=== PATIENT | female | born 1960 | race Two or more races ===

== ENCOUNTER 2019-07-31 05:20 | Inpatient (IN) | payer OTHER ==
[2019-07-31] VITALS (8 sets, daily range): BP systolic 126–152; BP diastolic 66–78
[~2019-07-31] VITALS: Ht 167.6 cm; Wt 71.7 kg
[2019-07-31] MEDS ORDERED: Phenylephrine 10mg/ml Vial ONE (06:23)
[2019-07-31] MEDS ORDERED: Lidocaine 1% MPF 10mg/ml 5ml ONE (06:23)
[2019-07-31] MEDS ORDERED: PROBIOTIC1 EAC2 PO (06:26)
[2019-07-31] MEDS ORDERED: MULTIVITAMINS1 EAC2 ORAL (06:26)
[2019-07-31] MEDS ORDERED: VITAMIN B12-FO1 EAC1 PO (06:26)
[2019-07-31] MEDS ORDERED: fentaNYL 100 mcg/2 mL IV ONE (06:26)
[2019-07-31] MEDS ORDERED: TURMERIC CURCUMIN PO (06:26)
[2019-07-31] MEDS ORDERED: Midazolam 2mg/2ml Inj ONE (06:27)
[2019-07-31] MEDS ORDERED: MUPIROCIN22 GM TOPIC (06:28)
[2019-07-31] MEDS ORDERED: Dexamethasone 4mg/ml vial ONE (06:31)
[2019-07-31] MEDS ORDERED: Vancomycin 1gm vial IVPB ONE (06:38)
[2019-07-31] MEDS ORDERED: Thrombin 5000 units TOPIC ONE (06:39)
[2019-07-31] MEDS ORDERED: Gelfoam Size TOPIC ONE (06:39)
[2019-07-31] MEDS ORDERED: Bacitracin 50000 Units Vial ONE (06:39)
[2019-07-31] MEDS ORDERED: Succinylcholine 20mg/ml 10ml vial ONE (06:40)
[2019-07-31] MEDS ORDERED: Rocuronium Bromide 50mg/5ml Inj IV ONE (06:40)
[2019-07-31] MEDS ORDERED: NS Irrig 1000ml ONE (07:00)
[2019-07-31] MEDS ORDERED: LR 1000ml ONE (07:00)
[2019-07-31] MEDS ORDERED: Sterile Water Irrig 1000ml IRRIG ONE (07:00)
[2019-07-31] MEDS ORDERED: ceFAZolin sod 2 GM in NS 55 ML IVPB ONE (07:00)
[2019-07-31] MEDS ORDERED: ceFAZolin sod 1 GM in NS 55 ML IVPB ONE (07:00)
[2019-07-31] MEDS ORDERED: Propofol 1,000mg/ 100ml btl IV ONE (07:00)
--- NOTE | 2019-07-31 07:02 | Anethesia Preoperative Eval ---
Anesthesia Pre-op PMH/ROS General Date of Evaluation: Jul 31, 2019 Time of Evaluation: 06:59 Anesthesiologist: James ASA Score: ASA 2 Mallampati Score Class I : Soft palate, uvula, fauces, pillars visible Class II: Soft palate, uvula, fauces visible Class III: Soft palate, base of uvula visible Class IV: Only hard plate visible Mallampati Classification: Class II Surgeon: Lubna Diagnosis: Cervical radiculopathuy Surgical Procedure: ACDF Anesthesia History: none Family History: no anesthesia problems Allergies: Coded Allergies: No Known Allergies (Unverified , 07/31/19) Patient NPO?: Yes NPO Date: Jul 30, 2019 NPO Time: 2300 Past Medical History Cardiovascular: Denies: HTN, CAD, PA, valve dz, arrhythmia, other Pulmonary: Denies: asthma, COPD, MOUNIKA, other Gastrointestinal/Genitourinary: Reports: GERD; Denies: CRI, ESRD, other Neurologic/Psychiatric: Reports: other - chronic pain; Denies: dementia, CVA, depression/anxiety, TIA Endocrine: Denies: DM, hypothyroidism, steroids, other HEENT: Denies: cataract (L), cataract (R), glaucoma, [place] (L), [place] (R), other Hematology/Immune: Denies: anemia, DVT, bleeding disorder, other Musculoskeletal/Integumentary: Denies: OA, RA, DJD, DDD, edema, other PMH Narrative: as above PSxH Narrative: see H&P Anesthesia Pre-op Phys. Exam Physician Exam Last Vital Signs Date Time Temp Pulse Resp B/P (MAP) Pulse Ox O2 Delivery O2 Flow Rate FiO2 07/31/19 06:02 Room Air 07/31/19 05:51 97.4 74 18 137/78 (97) 98 Constitutional: NAD Neurologic: CN 2-12 intact Cardiovascular: RRR, no M/R/G Respiratory: CTA Gastrointestinal: S/NT/ND Airway Exam Mallampati Score: Class II MO: full Neck: flexible ROM: full Teeth: intact Dentures: no upper, no lower Anesthesia Pre-op A/P Labs see chart Studies Pre-op Studies: EKG - NSR, CXR - WNL Risk Assessment & Plan Assessment: ASA 2 Plan: GA with ETT, PONV prevention, neuromonitoring Status Change Before Surgery: No Pre-Antibiotics Drug: Ancef 1gr. Given Within 1 Hr of Incision: Yes Time Given: 07:22 Isidro Ramirez MD Jul 31, 2019 07:02
[2019-07-31] MEDS ORDERED: Acetaminophen (Non formulary) 100 ML IV ONE (07:15)
--- NOTE | 2019-07-31 07:20 | Pre-Procedure Note/Attestation ---
Pre-Procedure Note/Attestation Complete Prior to Procedure Planned Procedure: not applicable Procedure Narrative: Anterior cervical discectomy and fusion of C56 Indications for Procedure Pre-Operative Diagnosis: C56 herniation Attestation I attest that I discussed the nature of the procedure; its benefits; risks and complications; and alternatives (and the risks and benefits of such alternatives ), prior to the procedure, with the patient (or the patient's legal chain sales representative). I attest that, if there was a reasonable possibility of needing a blood transfusion, the patient (or the patient's legal chain sales representative) was given the [facility] standardized written summary, pursuant to the Demario Tiago Blood Safety Act ([place] Health and Safety Code # 1645, as amended). I attest that I re-evaluated the patient just prior to the surgery and that there has been no change in the patient's H&P, except as documented below: Vance Calvo MD Jul 31, 2019 07:20
--- NOTE | 2019-07-31 07:23 | Brief Operative Note ---
Immediate Post Operative Note Operative Note Chief Complaint: neck pain and radiculopathy left Pre-op Diagnosis: C56 herniation Procedure: Anterior cervical discectomy and fusion of C56 Post-op Diagnosis: same as pre-op Findings: consistent w/pre-op dx studies Surgeon: Lubna Geochemical Laboratory Technician: Caroline Anesthesiologist: delia Anesthesia: general Specimen: none Complications: none Condition: stable Fluids: iv Estimated Blood Loss: minimal Drains: none Implant(s) used?: Yes - sz 6 nuvasive interlock c [id number] Vance Calvo MD Jul 31, 2019 07:23
[2019-07-31] MEDS ORDERED: Glycopyrrolate 0.2mg/ml 1ml Vial ONE (07:56)
[2019-07-31] MEDS ORDERED: Ketorolac 30mg Inj ONE (07:56)
[2019-07-31] MEDS ORDERED: Morphine Sulfate 10mg/ml Inj ONE (07:56)
[2019-07-31] MEDS ORDERED: Neostigmine 1mg/ml 10ml Inj ONE (07:56)
[2019-07-31] MEDS ORDERED: LR 1000ml 1,000 ML IVLG SCH (08:03)
[2019-07-31] MEDS ORDERED: Ketorolac 30mg Inj IV PRN (08:15)
[2019-07-31] MEDS ORDERED: DiphenhydrAMINE 50mg/ml Inj IVP PRN (08:15)
[2019-07-31] MEDS ORDERED: Metoclopramide 10mg/2ml Inj IVP PRN ×2 (08:15→11:00)
--- NOTE | 2019-07-31 08:57 | Immediate Post-Op Evaluation ---
Immediate Post-Op Evalulation Immediate Post-Op Evalulation Procedure: ACDF C5-C6 Date of Evaluation: Jul 31, 2019 Time of Evaluation: 08:56 IV Fluids: 800 Blood Products: none Estimated Blood Loss: 50 Urinary Output: 250 Blood Pressure Systolic: 142 Blood Pressure Diastolic: 76 Pulse Rate: 78 Respiratory Rate: 20 O2 Sat by Pulse Oximetry: 99 Temperature (Fahrenheit): 97.6 Pain Score (1-10): 2 Nausea: No Vomiting: No Complications none Patient Status: reacts, patent, extubated, none Hydration Status: adequate Isidro Ramirez MD Jul 31, 2019 08:56
[2019-07-31] MEDS: Hydromorphone 0.5mg/0.5ml inj IVP PRN ×2 (09:22→09:33)
--- NOTE | 2019-07-31 10:34 | NUR ---
NURSE NOTES: Received report. pt a/a/o x4 laying in bed with no signs of distress or other issues at this time. surgical site dry and intact with Dermabond. IV on the right hand gauge#18 running LR@100ml/hr, RN will review fluids and will change as indicated by MD. call light within reach, bed in lowest position. side rales up x2. pts friend at bedside.
[2019-07-31] MEDS ORDERED: HYDROcodone/Acetamin 7.5/325 tab ORAL PRN ×2 (11:00)
[2019-07-31] MEDS ORDERED: HYDROmorphone 1mg/ml Carpuject IVP PRN (11:00)
[2019-07-31] MEDS ORDERED: Naloxone 0.4mg/ml Inj IVP PRN (11:00)
[2019-07-31] MEDS ORDERED: HYDROcodone/Acetamin 5/325 tab ORAL PRN (11:00)
[2019-07-31] MEDS ORDERED: Morphine Sulfate 2mg/ml Inj(IV/IM USE ONLY) IV PRN (11:00)
[2019-07-31] MEDS ORDERED: Milk of Magnesia 30ml Ud ORAL PRN (11:00)
[2019-07-31] MEDS ORDERED: Morphine Sulfate 4mg/ml Inj (IV USE ONLY) IV PRN ×2 (11:00)
[2019-07-31] MEDS ORDERED: Chloraseptic Spray 20mL Bottle ORAL PRN (11:00)
[2019-07-31] MEDS: NS w/KCl 20mEq 1000ml 1,000 ML IV SCH ×3 (12:02→23:21)
[2019-07-31] MEDS: Dexamethasone 4mg/ml vial IVP SCH ×3 (12:02→23:29)
[2019-07-31] MEDS: ceFAZolin sod 1 GM in D5W 55 ML IV SCH ×2 (15:20→23:22)
--- NOTE | 2019-07-31 16:30 | Diagnostic Imaging Report ---
INDICATION: Pain, intraoperative TECHNIQUE: Intraoperative imaging Fluoroscopy time: 6. seconds Total dose: [id number] Total number of images: 3 COMPARISON: None FINDINGS: Intraoperative images document anterior fusion hardware at C5-6. IMPRESSION: Intraoperative imaging, as described
--- NOTE | 2019-07-31 16:30 | Diagnostic Imaging Report ---
INDICATION: Pain, intraoperative TECHNIQUE: Intraoperative imaging Fluoroscopy time: 6. seconds Total dose: [id number] Total number of images: 3 COMPARISON: None FINDINGS: Intraoperative images document anterior fusion hardware at C5-6. IMPRESSION: Intraoperative imaging, as described
--- NOTE | 2019-07-31 16:39 | NUR ---
CASE MANAGEMENT: INITIAL REVIEW 58 YO F PRESENTED TO HOSPITAL FOR SURGERY SI: HERNIATED NUCLEUS PULPOSUS T 97.4 HR 74 RR 18 B/P 137/78 SATS 98% ON RA LABS: NONE TODAY IS: OR MEDS PATIENT ADMITTED TO MED/SURG 07/31/2019 @ 0723 DCP: HOME PLAN OF CARE: Pre-op Diagnosis: C56 herniation Procedure: Anterior cervical discectomy and fusion of C56 Addendum: 07/31/19 at 1656 by Olena Barajas CM INTERQUAL MET
[2019-07-31] MEDS: Docusate 100mg cap ORAL SCH (17:40)
--- NOTE | 2019-07-31 19:27 | NUR ---
HAND-OFF: Report given to Divina RACHEL, pt in stable condition. - During my shift pt was able to ambulate around the room with steady gait and staff supervision. - pt was able to void after Palma cath was removed from PACU.
--- NOTE | 2019-07-31 19:34 | NUR ---
NURSE NOTES: Received patient in bed, awake, alert, oriented x4, IV site is dry, clean and intact, no acute distress noted or reported,dressing site is clean dry and intact. Call light is within reach, bed is lowered, locked and alarm is on. Will continue to monitor for comfort and safety.
[2019-08-01] MEDS: Dexamethasone 4mg/ml vial IVP SCH (05:45)
[2019-08-01] MEDS: ceFAZolin sod 1 GM in D5W 55 ML IV SCH (06:41)
--- NOTE | 2019-08-01 07:32 | NUR ---
NURSE NOTES: Received patient in bed awake. No SOB or acute distress. IV line intact and patent. Neck dressing intact. HOB elevated. Bed locked in lowest position. Call light within reach. Will continue plan of care.
--- NOTE | 2019-08-01 08:00 | NUR ---
NURSE NOTES: VS taken and recorded: 97.9F, 72 HR, 18 RR, 111/58 BP, pain 0/10
[2019-08-01] MEDS: Docusate 100mg cap ORAL SCH (08:50)
[2019-08-01 09:30] VITALS: BP 126/68
--- NOTE | 2019-08-01 09:30 | 48 Hour Post Anesthesia Eval ---
Post Anesthesia Evaluation Procedure: ACDF C5-C6 Date of Evaluation: Aug 01, 2019 Time of Evaluation: 09:29 Blood Pressure Systolic: 126 0: 68 Pulse Rate: 74 Respiratory Rate: 20 Temperature (Fahrenheit): 97.6 O2 Sat by Pulse Oximetry: 98 Airway: patent Nausea: No Vomiting: No Pain Intensity: 2 Hydration Status: adequate Cardiopulmonary Status: stable Mental Status/LOC: patient returned to baseline Follow-up Care/Observations: n/a Post-Anesthesia Complications: none Follow-up care needed: ready to discharge Isidro Ramirez MD Aug 01, 2019 09:30
--- NOTE | 2019-08-01 10:10 | NUR ---
NURSE NOTES: Spoke to regarding discharge and cleared to discharge patient today. Order noted and carried out.
[2019-08-01] MEDS ORDERED: NORCO 10-325 T1 EACH ORAL (10:23)
[2019-08-01] MEDS ORDERED: CARISOPRODOL350 MG ORAL (10:25)
--- NOTE | 2019-08-01 12:05 | NUR ---
NURSE NOTES: VS taken and recorded: 97.4 F, 74 HR, 20 RR, 109/63 BP, 99 O2 sat, 0/10 pain. Patient for discharge today, requested for flu shot, ok with Dr Calvo.
--- NOTE | 2019-08-01 12:54 | NUR ---
NURSE NOTES: Flu vaccine given on left deltoid.
--- NOTE | 2019-08-01 14:00 | NUR ---
NURSE NOTES: Patient discharged in stable condition. IV line removed. ID band removed. Belongings accounted for. No new skin issues noted. Discharge instructions given, verbalized understanding. Accompanied by friend ambulator with steady gait.
--- NOTE | 2019-08-01 15:45 | Operative Note - Dictated ---
DATE OF OPERATION: 07/31/2019 SURGEON: Vance Calvo M.D., Orthopaedic Spine Surgeon. PLANT CONTROL OPERATOR: ALEXIS Saab. PREOPERATIVE DIAGNOSES: 1. Intractable neck pain. 2. Radiculopathy. 3. Herniation, C5-C6. 4. Neural foraminal stenosis, C5-C6. 5. Stenosis. POSTOPERATIVE DIAGNOSES: 1. Intractable neck pain. 2. Radiculopathy. 3. Herniation, C5-C6. 4. Neural foraminal stenosis, C5-C6. 5. Stenosis. PROCEDURE PERFORMED: 1. Anterior cervical discectomy and fusion of C5-C6 using NuVasive C Interlock cage, size 6, a total of three screws of 13 mm length, with the insertion of 1 mL of allograft bone. 2. Use of intraoperative microscope. 3. Motor-evoked potential monitoring. 4. Somatosensory-evoked potential monitoring. 5. Supervision and interpretation of fluoroscopy. COMPLICATIONS: None. ANESTHESIA: General. ESTIMATED BLOOD LOSS: Less than 100 mL. INDICATIONS FOR SURGERY: This patient is a 58-year-old female, who has a history of intractable neck pain, radiculopathy, herniation, C5-C6, neural foraminal stenosis, C5-C6, stenosis. We tried a course of conservative management but despite this course there was still a significant component of persistent, recalcitrant neck pain and arm pain. The MRI demonstrated significant neural foraminal compromise secondary to disc herniations at C5-C6. We had a long discussion with Geoffrey regarding the risks and benefits of surgery. Our discussion included but was not limited to nonoperative management, chiropractic management, another epidural steroid injection as well definitive management in the form of surgery. We recommended anterior cervical discectomy and fusion of C5-C6 using NuVasive C Interlock cage, size 6, a total of three screws of 13 mm length, with the insertion of 1 mL of allograft bone as final definitive management. We reviewed the risks and benefits of surgery with the patient. Our discussion included a comprehensive review of the clinical issues and the nature of the clinical decision. We reviewed the alternatives, including doing nothing. The patient elected to proceed accordingly with anterior cervical discectomy and fusion of C5-C6 using NuVasive C Interlock cage, size 6, a total of three screws of 13 mm length, with the insertion of 1 mL of allograft bone. We had a long discussion regarding the risks, alternatives and benefits of surgery. Our description of the risks included a discussion in person as well as a signed consent which detailed all pertinent risks from the procedure itself. Briefly, our discussion included but was not limited to infection, bleeding, pseudarthrosis, spinal cord injury, neurovascular injury, dural tear, CSF leak, neuropathy, paralysis, permanent weakness/drop foot/drop arm, paresthesias, blindness, palsy and weakness. The patient understood there may be a need for a revision surgery or additional procedures. Approach-related complications including dysphonia, dysphagia, blindness, permanent vocal cord and neural injury, hematoma, swallowing and breathing difficulty. Medical complications were reviewed including liver, kidney, shock, cardiopulmonary failure, anesthesia complications including , swelling, damage to the musculature, larynx/voice injury or loss, esophagus/throat, trachea, blood vessels and muscles/muscular sprain and lungs/pneumothorax during this surgical procedure; injury to deeper structures may be temporary or permanent. After this review of risks, the patient understood these and elected to proceed. A written and verbal consent was given. We discussed the pros and cons of all the alternatives. We discussed the uncertainties associated with the decision. Afterwards I assessed the patient's understanding and explored their preferences. All questions were answered and no guarantees were given. Medical clearance was obtained prior to surgery. INTRAOPERATIVE FINDINGS: C5-C6, we encountered a large disc herniation through a tear in the posterior longitudinal ligament. The tear in the PLL was nearly vertical approximately 10 degrees and encroaching on the neural foramina posteriorly. Once we probed the tear, there was a disc herniation. This disc herniation was larger in size and anticipated. The disc herniation was soft and mobile and easily resected with Kerrison 1 and Kerrison 2 rongeurs allowing for decompression of the neural foramina bilaterally and the thecal sac posteriorly. Character of the entire disc space was soft and mobile, not calcified or crumbled, which are some characteristics we see in a degenerative process. The patient tolerated the procedure well without any complication. DESCRIPTION OF PROCEDURE: Under the benefit of general endotracheal anesthesia and with the assistance of the entire operative team, the patient was moved from the rney onto the operative table in the supine position. The head was secured and carefully positioned appropriately. Bilateral arms were secured with GelPads and foam and all bony prominences were padded. For the bilateral lower extremities SCD and TUAN hose were placed for DVT prophylaxis. A surgical timeout was called which corroborated our planned procedure of anterior cervical discectomy and fusion of C5-C6 using NuVasive C Interlock cage, size 6, a total of three screws of 13 mm length, with the insertion of 1 mL of allograft bone. Preoperative antibiotics were administered within 30 minutes of the incision for antibiotic prophylaxis. Using lateral fluoroscopic radiography, the operative levels were delineated. Next the wound was prepped and draped with Chlorhexidine and sterile drapes. An incision was based on lateral fluoroscopy and we centered our incision at the C5-C6 interspace and next using a standard Dickson-Benítez anterior based approach the incision was taken down through the skin and subcutaneous tissues until the vertebral bodies and their corresponding disc spaces were visualized. A needle was placed into the interspace to confirm placement of the operative interspace and we performed the remainder of procedure under microscopic visualization. Next, using a bipolar and Bovie cautery to ensure meticulous hemostasis, the longus colli was mobilized bilaterally and retractors were placed deep to the longus colli bilaterally to address retraction. Next we turned our attention to the radical anterior discectomy. This was initially performed at C5-C6 first by using a 15 blade scalpel followed by narrow pituitaries and a micro-sect 5-B curette was used to denude the endplate of all cartilaginous tissue. Next using a [employer] AM8 drill bit the vertebral endplates were denuded of all cartillage in a cell- by-cell and layer by layer fashion, and ultimately the posterior uncinate joints bilaterally and posterior osteophytic lips and margins causing central and lateral impingement were carefully denuded until visualization of the posterior longitudinal ligament was possible. An endplate preparation was performed in the exact same fashion using an intervertebral manager zone, sequential distraction was obtained throughout the disc space. We saw a tear/rent in the PLL and this was carefully mobilized and dissected using a micro-set 1-B curet until we visualized a broad-based disc herniation with compression of the spinal cord as well as neural foramina sided. This neural foraminal compression was carefully resected using a Kerrison-1 and Kerrison-2 rongeurs until complete decompression of the spinal cord was visualized and complete decompression of the neural foramina and nerve root therein as well as the axilla and lateral margin of the nerve root was visualized and subsequently completely decompressed. The family was notified at one hour intervals throughout the procedure to provide for consistent updates. We next turned our attention towards trialing our implant within the disc space. We initially tried size 5 and afterwards size 6 trial from the NuVasive system at each level, which appeared to be appropriate under AP and lateral fluoroscopy as well as in terms of its height, depth, width and lack of toggle. The PEEK polyetheretherketone interbody cages were then both packed with allograft bone from [employer] and local autograft bone matrix. Next these were then carefully advanced and secured into their intervertebral spaces under direct visualization and with supervision of AP and lateral fluoroscopic views. We next turned our attention towards plating. Plating was performed with NuVasive. A total of three screws, size 6, 13 mm in length were inserted and confirmed under AP and lateral fluoroscopy and confirmed to be in excellent position. After a finger sweep we confirmed removal of all sponges. The retractor was removed and we next turned our attention to meticulous hemostasis with FloSeal and bipolar cautery. After the sponge and needle count was again found to be correct with our second count, we next turned our attention to closure. The wound was again copiously irrigated with antibiotic impregnated saline. Closure consisted of 4-0 clear nylon for the platysma, and 6-0 clear nylon for the superficial skin. Final skin closure and dressings consisted of Dermabond. Prior to final closure, a final radiograph was obtained which demonstrated the hardware is intact with excellent position throughout. The patient tolerated the procedure well. The patient was carefully extubated after the conclusion of surgery. We discussed the findings of the surgery with the family upon completion of the case. At this point the patient was transferred to the spine floor for further observation. Vance Calvo M.D. DR: NIRMALA JOB#: [id number] CC: ALCIDES
--- NOTE | 2019-08-02 09:30 | Discharge Summary ---
DATE OF ADMISSION: 07/31/2019 DATE OF DISCHARGE: 08/01/2019 PROCEDURE PERFORMED DURING ADMISSION: ACDF C5-C6. REASON FOR ADMISSION: Herniated disc C5-C6. HOSPITAL COURSE/TREATMENT RENDERED: DISCHARGE PHYSICAL EXAMINATION: 1. The patient was ambulating with and without the assistance of physical therapy. 2. Prior to discharge home, incision was clean and dry with minimal swelling. 3. Follows commands. 4. Alert and oriented. 5. Palma discontinued, voiding. 6. Incentive spirometer at bedside. 7. IVF hep locked. MOTOR: Demonstrates expected postoperative bulk and tone. Moves biceps, triceps, and deltoid musculature on command. Moves hip flexors, quadriceps, tibialis anterior, EHL, gastrocsoleus musculature on command as well. TREATMENT RENDERED: 1. Daily nursing care. 2. Physical Therapy. 3. Occupational Therapy. 4. Intravenous medications. 5. Oral medications. 6. Daily postoperative examinations by Spine surgery team. CONDITION OF PATIENT ON DISCHARGE: The condition on discharge is stable for discharge to home. DISCHARGE INSTRUCTIONS: Our specific instructions relating to physical activity, medications, diet, and followup care are detailed in our standard operative folder and were given to this patient prior to surgery. We will however summarize these briefly as stated below. Regarding physical activity, we would like the patient to limit their flexion, extension, and rotation. We also require a limitation on their bending lifting and twisting. All medication has been called in prior to surgery to their pharmacy of choice. They can resume their regular diet once tolerated. We would like them to shower and limit soaking the wound in a tub/Jacuzzi/the ocean for a period of one month or until the incision is completely healed. We will have them follow up in our office in three weeks time for their regularly scheduled appointment. They understand to call our office tomorrow to schedule the time for their three week followup appointment. The patient will notify us should they experience any increase in the severity of pain, redness/swelling/ or drainage from their incision. Vance Calvo M.D. DR: NIRMALA JOB#: [id number] CC:
== END 2019-08-01 14:00 | disposition home or self-care (01) | DRG 473 ==
LOC: SDSOVERFLO 05:20 → 3E 09:58 → UNDODISIN 08-01 14:00
PROC: 0RG10A0 Fusion of Cervical Vertebral Joint with Interbody Fusion Device, Anterior Approach, Anterior Column, Open Approach (ICD-10-PCS; principal; 2019-07-31 07:00)
PROC: 0RB30ZZ Excision of Cervical Vertebral Disc, Open Approach (ICD-10-PCS; principal; 2019-07-31 07:00)
DX: M50.122 Cervical disc disorder at C5-C6 level with radiculopathy (principal); M48.02 Spinal stenosis, cervical region; K21.9 Gastro-esophageal reflux disease without esophagitis; F10.11 Alcohol abuse, in remission
CPT/HCPCS: 36415; 72040; 76000; 86850; 86900; 86901; 87081; 90689; 94003; 94150; J2250; J2370; J2405; J2710; J2765